=== PATIENT | female | born 1955 | race Two or more races ===

== ENCOUNTER 2025-06-08 18:33 | Inpatient (IN) | payer MEDICARE, MEDICAID ==
[~2025-06-08] VITALS: Ht 152.4 cm; Wt 59.5 kg
--- NOTE | 2025-06-08 18:47 | ED.PDOC ---
GI ASSESSMENT HPI Comments HPI: poor historian 70 year old female presents to the emergency department via EMS with a chief complaint of lower abdominal pain. Per EMS, patient lives at home with daughter, has been experiencing lower abdominal pain since this morning, tender to touch. EMS also states patient's daughter noticed patient has been hallucinating for the past 3 weeks. EMS noticed patient has a buttock ulcer, has a Celis catheter in place. Patient has a home health nurse, visits her once a week. Patient is a poor historian, is able to follow commands. No other symptoms or modifying factors present at this time. Initial Vitals BP: 114/68 HR: 86 RR: 18 O2: 97% Past Medical History: paraplegia, Alzheimer's disease, behavioral Past Surgical History: Denies Social History: Denies ETOH, smoking, and drug use. Medications:donepezil, Haloperidol Allergies: NKDA HPI: Poor Historian. Past Medical History: Past Surgical History: REVIEW OF SYSTEMS: CONSTITUTIONAL: Denies acute: fever, diaphoresis, chills, HEAD: Denies acute: headache, photophobia Eyes: Denies acute: Double vision, vision loss, eye pain, eye discharge. EARS: Denies acute: tinnitus, hearing loss, ear discharge, ear pain, THROAT: Denies acute: sore throat, swelling, difficulty swallowing , pain with swallowing, change in voice. NECK: Denies acute: neck pain, neck swelling, stiff neck. HEART: Denies acute : chest pain, palpitations, LUNGS: Denies acute: SOB, wheezing, cough, hemoptysis ABDOMEN: Denies acute: Nausea, Vomiting, diarrhea, melena , hematemesis, hematochezia SKIN: Denies acute: rash, redness, lesions, itchiness. EXTREMITIES: Denies acute: calf pain, numbness, tingling, weakness, denies pain in extremity. Denies acute: Low back pain. Neuro: Denies acute: focal neurological deficit, motor or sensory focal neurological deficit, tremors, seizure like activity, confusion, dizziness, change in mental status, loss of bowel or bladder function, cauda equina like symptoms. : Denies acute: dysuria, hematuria, flank pain, increase in urinary frequency. PSYCH: Denies acute: , suicidal ideation, homicidal ideation. FEMALE: Denies acute: abnormal vaginal bleeding, foul odor, unusual discharge. PHYSICAL EXAM: General: -----mild---acute distress, awake and alert. Head: normocephalic, atraumatic. Neck: supple, trachea is midline, no swelling. Throat: Normal phonation. Eyes:, no erythema, no purulent discharge, no proptosis, no icterus. Heart: regular rate, regular rhythm, no significant murmur appreciated. Lungs: no apparent respiratory distress, Able to speak in full sentences. No wheezing, no rhonchi, no crackles. No stridors Clear to auscultation bilaterally. Abdomen: Lower abdomen generalized tender to palpation, non distended, soft, no guarding, no rebound, + bowel sounds. Neuro: Awake, Alert, oriented to name, self, situation, follows commands Speech is normal. Skin: no petechia, no purpura, no cyanosis, non-pale, not jaundice. Lower extremities: --no - Pitting edema no deformity, no focal swelling, no calf TTP. Makes eye contact. Able to raise bilateral upper extremities against gravity. Patient is paralyzed from the waist down. Face: no apparent facial droop. Noted Celis catheter bag with normal urine color. ED COURSE: DISCLAIMER: This medical document was created using an electronic medical record system with voice recognition software and computerized dictation system. Although this document has been carefully reviewed, there might still be some phonetic and typographical errors. Occasional wrong-word or "sound-alike" substitutions may have occurred due to the inherent limitations of voice recognition software. Th hugo areas are purely typographical due to imperfections of the software programs and do not reflect any compromise in the patient's medical care. Please read the chart carefully and recognize, using context, where these substitutions have occurred. Time Seen by MD: 18:40 Reviewed Notes: Medications, Allergies Allergies: Coded Allergies: NO KNOWN ALLERGIES (Unverified , 06/08/25) Information Source: Patient, Emergency Med Personnel Mode of Arrival: EMS Timing: Weeks Duration: Since onset Prehospital treatment: None Quality: Sharp Vomitus: None Severity: Moderate Recent: None Recent Hx of: None Pain Location: RLQ, LLQ Modifying Factors: Nothing Associated sign and symptoms: Abdominal Pain, Other Past Medical History PAST MEDICAL HISTORY: Unknown Past Medical History (Other): parapalegia Surgical History: Unknown [employer]ITTING [employer]ATOR History: Unknown Family History Family History: Unknown Social History Smoker: Non-Smoker Alcohol: Denies ETOH Use Drugs: Denies Drug Use Lives In: Home Was a procedure done? Was a procedure done?: No GI differential Dx Differential Diagnosis: Other (DDX include Diverticulitis, colitis, gastroenteritis, acute abdomen, SBO, enteritis, constipation, volvulus, appendicitis, Gallbladder disease, choledocolithiasis, ascending cholangitis, pancreatitis, intraAbdominal mass/neoplasm, hepatitis, UTI, pylonephritis, kidney stone, aneurysm, dissection, Inflammatory bowel disease, gastroparesis, ischemic bowel, ovarian torsion, ovarian cyst/mass, PID, STD.) X-Ray, Labs, Meds, VS Vital Signs Date Time Temp Pulse Resp B/P (MAP) Pulse Ox O2 Delivery O2 Flow Rate FiO2 06/09/25 04:00 64 16 150/64 (92) 98 06/09/25 02:00 65 17 149/62 (91) 98 06/08/25 23:33 62 15 97 Room Air* 0 21 06/08/25 23:33 97.7 62 15 155/59 (91) 97 97.7 06/08/25 18:48 98.9 86 18 114/68 97 98.9 06/08/25 18:40 68 Lab Test 06/09/25 00:04 06/08/25 18:54 Range/Units Urine Color Light-yellow Yellow Urine Clarity Turbid H Clear Urine pH 6.0 5.0-9.0 Urine Specific [place] 1.014 1.001-1.035 Urine Protein Negative Negative Urine Ketones Trace Negative Urine Blood Trace H Negative /uL Urine Nitrite Negative Negative Urine Bilirubin Negative Negative Urine Urobilinogen Normal Negative mg/dL Urine Leukocyte Esterase 3+ Negative /uL Urine RBC 57 0 - 4 /hpf Urine Microscopic WBC 166 H 0-5 /HPF Urine Squamous Epithelial Cells Few <5 /hpf Urine Bacteria None seen None Seen /hpf Urine Mucus Few None Seen Urine Yeast with Hyphae Present /hpf Urine Yeast (Budding) Many None Seen /hpf Urine Glucose Normal Normal mg/dL White Blood Count 11.4 H 4.4-10.8 10^3/uL Red Blood Count 4.55 4.0-5.20 10^6/uL Hemoglobin 13.2 12.2-16.2 g/dL Hematocrit 39.3 36.0-46.0 % Mean Corpuscular Volume 86.3 80.0-100.0 fL Mean Corpuscular Hemoglobin 29.0 28.0-32.0 pg Mean Corpuscular Hemoglobin Concent 33.5 32.0-36.0 g/dL Red Cell Distribution Width 14.4 H 11.8-14.3 % Platelet Count 288 140-450 10^3/uL Mean Platelet Volume 10.1 6.9-10.8 fL Neutrophils (%) (Auto) 64.9 37.0-80.0 % Lymphocytes (%) (Auto) 27.0 10.0-50.0 % Monocytes (%) (Auto) 5.7 0.0-12.0 % Eosinophils (%) (Auto) 2.1 0.0-7.0 % Basophils (%) (Auto) 0.3 0.0-2.0 % Neutrophils # (Auto) 7.4 1.6-8.6 10 ^3/uL Lymphocytes # (Auto) 3.1 0.4-5.4 10 ^3/uL Monocytes # (Auto) 0.7 0-1.3 10 ^3/uL Eosinophils # (Auto) 0.2 0-0.8 10 ^3/uL Basophils # (Auto) 0 0-0.2 10 ^3/uL Nucleated Red Blood Cells 0.3 % Sodium Level 137 136-145 mmol/L Potassium Level 4.7 3.5-5.1 mmol/L Chloride Level 104 98-107 mmol/L Carbon Dioxide Level 25 20-31 mmol/L Anion Gap 8 5-15 Blood Urea Nitrogen 18 9-23 mg/dL Creatinine 0.62 0.550-1.02 mg/dL Glomerular Filtration Rate Calc 96 >90 mL/min BUN/Creatinine Ratio 29.0 H 10.0-20.0 Serum Glucose 95 74-106 mg/dL Lactic Acid Level 0.9 0.4-2.0 mmol/L Calcium Level 10.7 H 8.7-10.4 mg/dL Total Bilirubin 0.4 0.2-1.0 mg/dL Aspartate Amino Transferase (AST) 23 13-40 U/L Alanine Aminotransferase (ALT) 14 7-40 U/L Alkaline Phosphatase 122 H 46-116 U/L Troponin I High Sensitivity 10 </=34 ng/L Total Protein 7.1 5.7-8.2 g/dL Albumin 4.1 3.2-4.8 g/dL Lipase 30 12-53 U/L [facility] [id number] [place] [id number] Ph: [phone] DIAGNOSTIC IMAGING Diagnostic Imaging Report : [id number] Signed PATIENT: Maria Luisa Storey ACCT: [id number] UNIT: [id number] : 1955 LOC: ER ROOM / BED: / AGE / SEX: 70 / F ADM STATUS: REG ER SERVICE 12 ORDERING PHYSICIAN: CHEYANNE GUO DO PROCEDURE(s): ABPL - CT AB PEL WO CON-NO ORAL OR IV REASON: ABD PAIN ORDER NUMBER(s): [id number], ACCESSION NUMBER(s): [id number] EXAM: CT CT AB PEL WO CON-NO ORAL OR IV INDICATION: ABD PAIN TECHNIQUE: Volumetric multidetector CT images of the abdomen and pelvis were obtained without contrast. All CT scans at this facility use dose modulation, iterative reconstruction, and/or weight based dosing when appropriate to reduce radiation dose to as low as reasonably achievable. COMPARISON: None FINDINGS: [LOWER CHEST]: The partially visualized lung bases are clear without a pleural effusion. The cardiac size is normal without pericardial effusion. [LIVER]: Normal hepatic size without suspicious focal lesion. [GALLBLADDER AND BILIARY TREE]: Surgically absent. [SPLEEN]: Unremarkable. [PANCREAS]: Unremarkable. [ADRENAL GLANDS]: Unremarkable [KIDNEYS]: No hydronephrosis. No nephroureterolithiasis. Mild bilateral pelviectasis. [BLADDER]: Celis catheter decompression [REPRODUCTIVE ORGANS]: Unremarkable. [BOWEL/MESENTERY]: Stomach is normal. Moderate to severe stool burden extending to the rectum. Correlate for constipation. Normal appendix. [ASCITES]: Absent [LYMPHADENOPATHY]: No pathologically enlarged lymph nodes by CT size criteria [VASCULATURE]: No aneurysmal dilatation. [ABDOMINAL WALL]: Unremarkable. [MUSCULOSKELETAL]: Severe atrophy of the hip abductor musculature. Prominent calcification along the soft tissues of the left gluteus musculature and surrou nding bilateral hips of indeterminate etiology. Asymmetric possible small amount of fluid along the right hip with soft tissue thickening. Multifocal degenerative change of the visualized spine. extensive thoracolumbar fusion hardware thin anterior syndesmophyte. Consideration for ankylosing spondylitis age-indeterminate fracture of T12. IMPRESSION: 1. Moderate to severe stool burden extending to the rectum. Correlate for constipation. Normal appendix. 2. Severe atrophy of the hip abductor musculature. Prominent calcification along the soft tissues of the left gluteus musculature and surrounding bilateral hips of indeterminate etiology. 3. Asymmetric possible small amount of fluid along the right hip with soft tissue thickening. ATED BY: TASHA ROY MD DICTATED DATE/TIME: 06/08/251936 SIGNED BY: TASHA ROY MD SIGNED DATE/TIME: 06/08/251936 CC: [place] [id number] Ph: [phone] DIAGNOSTIC IMAGING Diagnostic Imaging Report : [id number] Signed PATIENT: Maria Luisa Storey ACCT: [id number] UNIT: [id number] : 1955 LOC: ER ROOM / BED: / AGE / SEX: 70 / F ADM STATUS: REG ER SERVICE 99 ORDERING PHYSICIAN: CHEYANNE GUO DO PROCEDURE(s): CXRP - CHEST PORTABLE REASON: lower abd pain, hallucination ORDER NUMBER(s): [id number], ACCESSION NUMBER(s): [id number] EXAM: XY CHEST PORTABLE HISTORY: lower abd pain, hallucination TECHNIQUE: 1 view of the chest COMPARISON: None FINDINGS/IMPRESSION: LUNGS: No pleural effusion, consolidation, or pneumothorax MEDIASTINUM: Normal cardiac size BONES: No acute osseous abnormality. Thoracolumbar fusion. OTHER: Gallbladder is surgically absent. ATED BY: TASHA ROY MD DICTATED DATE/TIME: 06/08/251925 SIGNED BY: TASHA ROY MD SIGNED DATE/TIME: 06/08/251925 CC: Time of 1ST Reevaluation: 19:10 Reevaluation 1ST: Unchanged Patient Education/Counseling: Diagnosis, Treatment Family Education/Counseling: No Family Present Comments MDM: patient presented with the above HPI.---lower abdominal pain and hallucination---workup was initiated. patient was found with the above mentioned diagnosis. the following medications were ordered: please refer to order lists of meds and tests obtained by myself Dr. Guo. Patient ED course and VS have been stabilized. Patient has been reassessed in the ED and remained in a stable condition. Pertinent incidental findings were discussed with the patient and/or family. Patient/family voices understanding and is agreeable with plan. Patient has been observed in the ED adequate length of time to insure improvement/stability. Escalation of care considered: Consideration of escalation to observation or admission Urinalysis still pending. Patient was ADMITTED to the medicine team for further evaluation and treatment of their presentation. All the reports of any imaging studies that were ordered by myself were reviewed by myself. Departure 1 Departure Time of Disposition: 20:03 Impression: Primary Impression: Constipation Additional Impressions: Fecal impaction in rectum Hallucination Disposition: ADMITTED INPATIENT Admit to: Tele Condition: Guarded Discharged With: Self Critical Care Note Critical Care Time?: No I personally scribed for CHEYANNE GUO DO ([email or web address]) on 06/08/25 at 18:47. Electronically submitted by Malka David ([email or web address]). I personally scribed for CHEYANNE GUO DO ([email or web address]) on 06/08/25 at 20:14. Electronically submitted by Malka David ([email or web address]). CHEYANNE GUO DO Jun 08, 2025 18:47
[2025-06-08 19:13] LABS: Hematocrit 39.3 % (36.0-46.0); Hemoglobin 13.2 g/dL (12.2-16.2); Mean Corpuscular Hemoglobin 29.0 pg (28.0-32.0); Mean Corpuscular Volume 86.3 fL (80.0-100.0); Nucleated Red Blood Cells % 0.3 %
[2025-06-08 19:27] LABS: Alanine Aminotransferase 14 U/L (7-40); Albumin 4.1 g/dL (3.2-4.8); Anion Gap 8 (5-15); BUN/Creatinine Ratio 29.0 (10.0-20.0); Bilirubin, Total 0.4 mg/dL (0.2-1.0); Blood Urea Nitrogen 18 mg/dL (9-23); Carbon Dioxide 25 mmol/L (20-31); Chloride 104 mmol/L (98-107); Glucose 95 mg/dL (74-106); Lipase 30 U/L (12-53); Potassium 4.7 mmol/L (3.5-5.1); Sodium 137 mmol/L (136-145); Total Protein 7.1 g/dL (5.7-8.2)
--- NOTE | 2025-06-08 19:28 | DVH ---
EXAM: XY CHEST PORTABLE HISTORY: lower abd pain, hallucination TECHNIQUE: 1 view of the chest COMPARISON: None FINDINGS/IMPRESSION: LUNGS: No pleural effusion, consolidation, or pneumothorax MEDIASTINUM: Normal cardiac size BONES: No acute osseous abnormality. Thoracolumbar fusion. OTHER: Gallbladder is surgically absent.
[2025-06-08 19:31] LABS: Alkaline Phosphatase 122 U/L (46-116); Calcium 10.7 mg/dL (8.7-10.4)
--- NOTE | 2025-06-08 19:39 | DVH ---
EXAM: CT CT AB PEL WO CON-NO ORAL OR IV INDICATION: ABD PAIN TECHNIQUE: Volumetric multidetector CT images of the abdomen and pelvis were obtained without contras t. All CT scans at this facility use dose modulation, iterative reconstruction, and/or weight based d osing when appropriate to reduce radiation dose to as low as reasonably achievable. COMPARISON: None FINDINGS: [LOWER CHEST]: The partially visualized lung bases are clear without a pleural effusion. The cardiac size is normal without pericardial effusion. [LIVER]: Normal hepatic size without suspicious focal lesion. [GALLBLADDER AND BILIARY TREE]: Surgically absent. [SPLEEN]: Unremarkable. [PANCREAS]: Unremarkable. [ADRENAL GLANDS]: Unremarkable [KIDNEYS]: No hydronephrosis. No nephroureterolithiasis. Mild bilateral pelviectasis. [BLADDER]: Celis catheter decompression [REPRODUCTIVE ORGANS]: Unremarkable. [BOWEL/MESENTERY]: Stomach is normal. Moderate to severe stool burden extending to the rectum. Corre late for constipation. Normal appendix. [ASCITES]: Absent [LYMPHADENOPATHY]: No pathologically enlarged lymph nodes by CT size criteria [VASCULATURE]: No aneurysmal dilatation. [ABDOMINAL WALL]: Unremarkable. [MUSCULOSKELETAL]: Severe atrophy of the hip abductor musculature. Prominent calcification along the soft tissues of the left gluteus musculature and surrounding bilateral hips of indeterminate etiology . Asymmetric possible small amount of fluid along the right hip with soft tissue thickening. Multifoc al degenerative change of the visualized spine. extensive thoracolumbar fusion hardware thin anterior syndesmophyte. Consideration for ankylosing spondylitis age-indeterminate fracture of T12. IMPRESSION: 1. Moderate to severe stool burden extending to the rectum. Correlate for constipation. Normal appen aicha. 2. Severe atrophy of the hip abductor musculature. Prominent calcification along the soft tissues of the left gluteus musculature and surrounding bilateral hips of indeterminate etiology. 3. Asymmetric possible small amount of fluid along the right hip with soft tissue thickening.
[2025-06-08 23:33] VITALS: PULSE 62; RESP 15; O2SAT 97
[2025-06-09] VITALS (7 sets, daily range): BP systolic 124–153; BP diastolic 52–72; PULSE 58–80; RESP 14–18; TEMP 97.5–97.8; O2SAT 97–100
[2025-06-09 01:06] LABS: Urine Budding Yeast MANY /hpf (None Seen); Urine Hyphae Yeast PRESENT /hpf; Urine Protein, UAD Negative (Negative)
[2025-06-09] MEDS ORDERED: ONDANSETRON HCL 4 MG/2 ML VIAL IV PRN (08:30)
[2025-06-09] MEDS ORDERED: DONE5TAB80 PO (08:32)
[2025-06-09] MEDS ORDERED: HAL1T PO (08:32)
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
[2025-06-09] MEDS: DONEPEZIL HYDROCHLORIDE 5 MG TAB PO SCH (09:52)
[2025-06-09] MEDS: GLYCERIN ADULT RECTAL SUPP PR ONE (09:52)
[2025-06-09] MEDS: DOCUSATE SOD 100 MG CAP PO PRN (09:52)
[2025-06-09] MEDS: SODIUM CHLORIDE 0.9% 500 ML IV ONE (13:25)
[2025-06-09] MEDS: HALOPERIDOL 1 MG TAB PO SCH (14:35)
[2025-06-09] MEDS: SODIUM CHLORIDE 0.9% 1,000 ML IV ONE (14:36)
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
[2025-06-10 01:00] VITALS: BP 128/42; PULSE 62; RESP 16; TEMP 98; O2SAT 100
[2025-06-10 05:00] VITALS: BP 147/49; PULSE 69; RESP 14; TEMP 97.9; O2SAT 99
[2025-06-10 06:00] LABS: Hematocrit 37.7 % (36.0-46.0); Hemoglobin 12.9 g/dL (12.2-16.2); Mean Corpuscular Hemoglobin 29.9 pg (28.0-32.0); Mean Corpuscular Volume 87.4 fL (80.0-100.0); Nucleated Red Blood Cells % 0.1 %
[2025-06-10 06:21] LABS: Albumin 3.9 g/dL (3.2-4.8); Alkaline Phosphatase 112 U/L (46-116); Anion Gap 8 (5-15); BUN/Creatinine Ratio 12.3 (10.0-20.0); Bilirubin, Total 0.4 mg/dL (0.2-1.0); Carbon Dioxide 24 mmol/L (20-31); Chloride 105 mmol/L (98-107); Glucose 76 mg/dL (74-106); Potassium 4.7 mmol/L (3.5-5.1); Sodium 137 mmol/L (136-145); Total Protein 7.0 g/dL (5.7-8.2)
[2025-06-10 06:22] LABS: Blood Urea Nitrogen 8 mg/dL (9-23)
[2025-06-10 06:23] LABS: Alanine Aminotransferase < 9 U/L (7-40); Calcium 10.5 mg/dL (8.7-10.4)
[2025-06-10 09:00] VITALS: BP 147/57; PULSE 65; RESP 17; TEMP 97.7; O2SAT 99
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
[2025-06-10 13:00] VITALS: BP 162/63; PULSE 71; RESP 20; TEMP 97.8; O2SAT 94
[2025-06-10 17:00] VITALS: BP 152/73; PULSE 64; RESP 17; TEMP 98.1; O2SAT 99
[2025-06-10 21:00] VITALS: BP 152/74; PULSE 74; RESP 17; TEMP 97.8; O2SAT 96
[2025-06-11] VITALS (7 sets, daily range): BP systolic 132–181; BP diastolic 53–88; PULSE 61–73; RESP 17–18; TEMP 96.9–98.1; O2SAT 96–99
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
[2025-06-11] MEDS: ACETAMINOPHEN 325 MG TAB PO PRN (18:53)
[2025-06-12] VITALS (7 sets, daily range): BP systolic 108–176; BP diastolic 60–82; PULSE 66–82; RESP 16–18; TEMP 97.5–98; O2SAT 96–99
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
[2025-06-12] MEDS: FLUCONAZOLE 200MG/100ML 100 ML IV SCH (12:48)
[2025-06-13 00:58] VITALS: BP 146/78; PULSE 80; RESP 17; TEMP 97.9; O2SAT 98
[2025-06-13 05:03] VITALS: BP 122/63; PULSE 104; RESP 18; TEMP 97.7; O2SAT 100
[2025-06-13 09:00] VITALS: BP 142/71; PULSE 74; RESP 17; TEMP 98; O2SAT 96
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
[2025-06-13 13:00] VITALS: BP 141/60; PULSE 64; RESP 17; O2SAT 98
[2025-06-13 17:00] VITALS: BP 124/81; PULSE 69; RESP 17; TEMP 98.2; O2SAT 97
[2025-06-13 20:22] VITALS: BP 122/72; PULSE 78; RESP 16; TEMP 97.6; O2SAT 98
[2025-06-14] VITALS (7 sets, daily range): BP systolic 12–126; BP diastolic 56–69; PULSE 62–71; RESP 16–18; TEMP 97.7–98.2; O2SAT 97–98
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
[2025-06-15 01:00] VITALS: BP 151/74; PULSE 65; RESP 18; TEMP 97.6; O2SAT 99
[2025-06-15 05:00] VITALS: BP 126/61; PULSE 61; RESP 18; TEMP 97.7; O2SAT 98
[2025-06-15 09:00] VITALS: BP 129/57; PULSE 68; RESP 20; TEMP 97.6; O2SAT 99
[2025-06-15] MEDS: Ensure HIGH Protein Chocolate 8oz Bottle PO SCH (12:00)
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
[2025-06-15 13:00] VITALS: BP 126/72; PULSE 88; RESP 20; TEMP 97.8; O2SAT 98
[2025-06-15 15:44] VITALS: BP 125/80; PULSE 68; RESP 16; TEMP 98.3; O2SAT 95
== END 2025-06-15 17:15 | disposition home health service (06) | DRG 871 ==
LOC: EDBD 18:33 → ER 18:33 → OVERFLOW 06-09 08:24 → EAST 06-09 11:05
PROVIDERS: ADMIT Family Medicine; ATTEND Family Medicine
PROC: 05HC33Z Insertion of Infusion Device into Left Basilic Vein, Percutaneous Approach (ICD-10-PCS; principal; 2025-06-14)
PROC: B54NZZA Ultrasonography of Left Upper Extremity Veins, Guidance (ICD-10-PCS; 2025-06-14)
PROC: 05H933Z Insertion of Infusion Device into Right Brachial Vein, Percutaneous Approach (ICD-10-PCS; 2025-06-15)
PROC: B54MZZA Ultrasonography of Right Upper Extremity Veins, Guidance (ICD-10-PCS; 2025-06-15)
DX: A41.9 Sepsis, unspecified organism (principal); G93.41 Metabolic encephalopathy; L89.213 Pressure ulcer of right hip, stage 3; N39.0 Urinary tract infection, site not specified; F02.82 Dementia in other diseases classified elsewhere, unspecified severity, with psychotic disturbance; G30.9 Alzheimer's disease, unspecified; L89.109 Pressure ulcer of unspecified part of back, unspecified stage; K56.41 Fecal impaction; S71.001A Unspecified open wound, right hip, initial encounter; Z79.899 Other long term (current) drug therapy; Z74.01 Bed confinement status; Z90.49 Acquired absence of other specified parts of digestive tract; X58.XXXA Exposure to other specified factors, initial encounter; Y93.9 Activity, unspecified; Y99.8 Other external cause status; Y92.89 Other specified places as the place of occurrence of the external cause
CPT/HCPCS: 36415; 71045; 74176; 80053; 81001; 83605; 83690; 84484; 85025; 87040; 87081; 87086; 87088; 96361; 96365; 96366; 97110; 97163; G0378; J1450